=== PATIENT | female | born 1955 | race Caucasian/White ===

== ENCOUNTER 2017-08-05 14:42 | Inpatient (IN) | payer OTHER ==
[2017-08-05] MEDS: SOD CHLORIDE 0.9% 1,120 ML IV (15:13)
[2017-08-05 16:02] LABS: ADD UMIC YES; UR ASCORBIC ACID 20 mg/dL (NEGATIVE); UR BILIRUBIN (Dip) NEGATIVE (NEGATIVE); UR BLOOD (Dip) 1+ mg/dL (NEGATIVE); UR CLARITY TURBID (CLEAR); UR COLOR GREEN (YELLOW); UR GLUCOSE (Dip) NEGATIVE (NEGATIVE); UR KETONES (Dip) NEGATIVE (NEGATIVE); UR LEUKOCYTE ESTERASE (Dip) 2+ Leu/ul (NEGATIVE); UR NITRITE (Dip) NEGATIVE (NEGATIVE); UR SPECIFIC GRAVITY (Dip) 1.012 (1.003-1.030); UR TOTAL PROTEIN (Dip) 2+ mg/dl (NEGATIVE); UR UROBILINOGEN (Dip) NEGATIVE (NEGATIVE)
[2017-08-05 16:05] LABS: UR BACTERIA MODERATE /HPF (NONE SEEN); UR MUCUS FEW /HPF (NONE SEEN); UR NONSQUAMOUS EPITHELIAL CELL 3 /HPF (NONE SEEN)
[2017-08-05 16:07] LABS: ABNORMAL IP MESSAGE 1; HEMATOCRIT 19.8 % (37.0-47.0); MEAN CORPUSCULAR HEMOGLOBIN 27.4 pg (29.0-33.0); MEAN CORPUSCULAR HGB CONC 29.8 g/dl (32.0-37.0); MEAN CORPUSCULAR VOLUME 92.1 fl (82.0-101.0); MEAN PLATELET VOLUME 8.7 fl (7.4-10.4); PLATELET COUNT 150 10^3/UL (140-415); RED BLOOD COUNT 2.15 10^6/ul (4.20-5.40); RED CELL DISTRIBUTION WIDTH 14.9 % (11.5-14.5)
[2017-08-05 16:07] LABS: WHITE BLOOD COUNT 4.9 10^3/ul (4.8-10.8)
[2017-08-05 16:08] LABS: UR RBC > 182 /HPF (0-5); UR WBC > 182 /HPF (0-5)
[2017-08-05 16:14] LABS: ADD MAN DIFF? YES; HEMOGLOBIN 5.9 g/dl (12.0-16.0); POSITIVE DIFF @See below
[2017-08-05 16:15] LABS: PATH REVIEW? YES
[2017-08-05 16:20] LABS: INR 1.58; PROTIME 19.2 Sec (11.9-14.9); PT RATIO 1.5
[2017-08-05 16:21] LABS: PARTIAL THROMBOPLASTIN TIME 48.5 Sec (25.0-35.0)
[2017-08-05 16:22] LABS: ALANINE AMINOTRANSFERASE 42 IU/L (13-69); ALBUMIN 2.2 g/dl (3.3-4.9); ALBUMIN/GLOBULIN RATIO 0.66; ALKALINE PHOSPHATASE 184 IU/L (42-121); ANION GAP 18 (8-16); ASPARTATE AMINO TRANSFERASE 94 IU/L (15-46); BLOOD UREA NITROGEN 41 mg/dl (7-20); CALCIUM 7.4 mg/dl (8.4-10.2); CARBON DIOXIDE 17 mmol/L (21-31); CHLORIDE 114 mmol/L (97-110); CREATININE 0.75 mg/dl (0.44-1.00); GLUCOSE 126 mg/dl (70-220); POTASSIUM 4.4 mmol/L (3.5-5.1); SODIUM 145 mmol/L (135-144); TOTAL PROTEIN 5.5 g/dl (6.1-8.1)
[2017-08-05 16:22] LABS: LACTIC ACID 8.4 mmol/L (0.5-2.0)
[2017-08-05] MEDS: MEROPENEM 500MG/50 ML (PMX) 50 ML IVPB (16:25)
[2017-08-05] MEDS: NORepinephrine 8MG/250 ML (PMX 250 ML IV (16:32)
[2017-08-05 16:34] LABS: TROPONIN-I < 0.012 ng/ml (0.00-0.12)
[2017-08-05 16:38] LABS: ANISOCYTOSIS 2+ (0-0); BAND NEUTROPHILS #M 1.5 10^3/ul (0.0-0.6); BAND NEUTROPHILS % (M) 32 % (0-4); HYPOCHROMASIA 1+ (0-0); LYMPHOCYTES #M 0.5 10^3/ul (0.8-2.9); LYMPHOCYTES % (M) 12 % (15-51); MICROCYTOSIS 2+ (0-0); MONOCYTES % (M) 2 % (0-11); PLATELET ESTIMATE NORMAL; SEG NEUT #M 2.7 10^3/ul (1.7-7.5); SEGMENTED NEUTROPHILS (M) % 54 % (39-77); SMUDGE%M 1 % (0-0)
[2017-08-05 17:01] LABS: AADO2 Arterial 217.7 mmHg (7.0-24.0); Allen Test ACCEPTAB; Arterial Base Excess -11.4 mmol/L (-3.0-3); Arterial Blood Gas Oxygen Sat 99.3 mmHG (95.0-98.0); Arterial COHb 0.3 % (0.0-3.0); Arterial Fraction of Oxyhgb 98.5 % (93.0-99.0); Arterial HCO3 15.8 mmol/L (22.0-26.0); Arterial MetHb 0.5 % (0.0-1.5); Arterial Total Hemglobin 6.9 g/dl (12.0-18.0); Arterial pCO2 42.1 mmhg (35-45); Blood Gas Low PEEP Setting 0 cmH2O; MODE VENT - AC; Site Left Radial
[2017-08-05] MEDS ORDERED: MEPERIDINE 25 MG INJ IV ×2 (17:30)
[2017-08-05] MEDS ORDERED: DEXTROSE 50% 50 ML SYRINGE IV ×2 (17:30)
[2017-08-05] MEDS: ACCU-CHEK XX ×7 (17:30→23:30)
[2017-08-05] MEDS ORDERED: ACETAMINOPHEN 650MG/20.3ML CUP PO (17:30)
[2017-08-05] MEDS ORDERED: ACETAMINOPHEN 650 MG SUPP PR (17:30)
[2017-08-05] MEDS: VANCOMYCIN 1 GM (PMX) 250 ML IVPB (18:37)
[2017-08-05] MEDS ORDERED: PROPOFOL 100 ML (19:29)
[2017-08-05] MEDS ORDERED: VECURONIUM 10 MG VIAL (19:29)
[2017-08-05 19:33] LABS: IMMEDIATE SPIN CROSSMATCH 1 1
[2017-08-05] MEDS ORDERED: MIDAZOLAM (DRIP) 50 mg/50 mL 50 ML IV (20:00)
[2017-08-05 20:23] LABS: LACTIC ACID 3.9 mmol/L (0.5-2.0)
[2017-08-05] MEDS: FAMOTIDINE 20 MG TAB PO (21:00)
[2017-08-05 22:35] LABS: LACTIC ACID 3.3 mmol/L (0.5-2.0)
[2017-08-05] MEDS: INSULIN HUMAN REGULAR 100 UNIT in SOD CHLORIDE 0.9% 99 ML IV (23:00)
[2017-08-05] MEDS: PROPOFOL 100 ML IV (23:01)
[2017-08-05] MEDS: VECURONIUM 10 MG VIAL IV (23:02)
[2017-08-05] MEDS: VECURONIUM 100 MG in DEXTROSE 5% 100 ML IV (23:03)
[2017-08-05] MEDS: CEFEPIME 2GM/50 ML (PMX) 50 ML IVPB (23:07)
[2017-08-05 23:38] LABS: AADO2 Arterial 201.4 mmHg (7.0-24.0); Allen Test ACCEPTAB; Arterial Base Excess -3.1 mmol/L (-3.0-3); Arterial Blood Gas Oxygen Sat 95.7 mmHG (95.0-98.0); Arterial COHb 0.2 % (0.0-3.0); Arterial Fraction of Oxyhgb 95.4 % (93.0-99.0); Arterial HCO3 20.5 mmol/L (22.0-26.0); Arterial MetHb 0.1 % (0.0-1.5); Arterial Total Hemglobin 10.1 g/dl (12.0-18.0); Arterial pCO2 25.8 mmhg (35-45); MODE VENT - AC; Site Left Radial; Temperature 32.3 C
[2017-08-05] MEDS: ARTIFICIAL TEARS 15 ML OPH BOTH EYES (23:56)
[2017-08-05] MEDS: OCULAR LUBRICANT 3.5 GM OPH OINT BOTH EYES (23:57)
[2017-08-06] MEDS: ACCU-CHEK XX ×24 (00:30→22:41)
[2017-08-06 04:19] LABS: ABNORMAL IP MESSAGE 1; HEMATOCRIT 30.1 % (37.0-47.0); INR 1.29; MEAN CORPUSCULAR HGB CONC 33.2 g/dl (32.0-37.0); MEAN CORPUSCULAR VOLUME 87.2 fl (82.0-101.0); MEAN PLATELET VOLUME 8.7 fl (7.4-10.4); PLATELET COUNT 214 10^3/UL (140-415); PROTIME 16.3 Sec (11.9-14.9); PT RATIO 1.3; RED BLOOD COUNT 3.45 10^6/ul (4.20-5.40); RED CELL DISTRIBUTION WIDTH 14.2 % (11.5-14.5)
[2017-08-06 04:19] LABS: WHITE BLOOD COUNT 18.9 10^3/ul (4.8-10.8)
[2017-08-06 04:20] LABS: PARTIAL THROMBOPLASTIN TIME 45.2 Sec (25.0-35.0)
[2017-08-06 04:24] LABS: POSITIVE DIFF @See below
[2017-08-06 04:27] LABS: ADD MAN DIFF? YES
[2017-08-06 04:30] LABS: ALANINE AMINOTRANSFERASE 43 IU/L (13-69); ALBUMIN 2.6 g/dl (3.3-4.9); ALBUMIN/GLOBULIN RATIO 0.65; ALKALINE PHOSPHATASE 183 IU/L (42-121); ANION GAP 17 (8-16); ASPARTATE AMINO TRANSFERASE 86 IU/L (15-46); BLOOD UREA NITROGEN 41 mg/dl (7-20); CALCIUM 8.1 mg/dl (8.4-10.2); CARBON DIOXIDE 22 mmol/L (21-31); CHLORIDE 113 mmol/L (97-110); CREATININE 0.62 mg/dl (0.44-1.00); GLUCOSE 90 mg/dl (70-220); MAGNESIUM 1.7 mg/dl (1.7-2.5); PHOSPHORUS 3.2 mg/dl (2.5-4.9); POTASSIUM 3.5 mmol/L (3.5-5.1); SODIUM 148 mmol/L (135-144); TOTAL PROTEIN 6.6 g/dl (6.1-8.1)
[2017-08-06 05:01] LABS: MAGNESIUM 2.2 mg/dl (1.7-2.5)
[2017-08-06 05:56] LABS: AADO2 Arterial 264.6 mmHg (7.0-24.0); Arterial Base Excess -2.9 mmol/L (-3.0-3); Arterial Blood Gas Oxygen Sat 96.4 mmHG (95.0-98.0); Arterial COHb 0.3 % (0.0-3.0); Arterial HCO3 21.1 mmol/L (22.0-26.0); Arterial MetHb 0.1 % (0.0-1.5); Arterial Total Hemglobin 11.3 g/dl (12.0-18.0); Arterial pCO2 28.1 mmhg (35-45); MODE VENT - AC; Site LB; Temperature 32.8 C
[2017-08-06] MEDS: OCULAR LUBRICANT 3.5 GM OPH OINT BOTH EYES ×5 (06:13→23:39)
[2017-08-06] MEDS: ARTIFICIAL TEARS 15 ML OPH BOTH EYES ×5 (06:13→23:39)
[2017-08-06] MEDS: CEFEPIME 2GM/50 ML (PMX) 50 ML IVPB ×3 (06:16→22:29)
[2017-08-06 07:40] LABS: LACTIC ACID 2.2 mmol/L (0.5-2.0)
[2017-08-06] MEDS: FAMOTIDINE 20 MG TAB PO (09:00)
[2017-08-06 09:49] LABS: ABNORMAL IP MESSAGE 1; HEMATOCRIT 30.4 % (37.0-47.0); HEMOGLOBIN 10.1 g/dl (12.0-16.0); MEAN CORPUSCULAR HEMOGLOBIN 28.7 pg (29.0-33.0); MEAN CORPUSCULAR HGB CONC 33.2 g/dl (32.0-37.0); MEAN CORPUSCULAR VOLUME 86.4 fl (82.0-101.0); PLATELET COUNT 193 10^3/UL (140-415); RED BLOOD COUNT 3.52 10^6/ul (4.20-5.40); RED CELL DISTRIBUTION WIDTH 14.4 % (11.5-14.5)
[2017-08-06 09:49] LABS: WHITE BLOOD COUNT 18.5 10^3/ul (4.8-10.8)
[2017-08-06 09:51] LABS: ADD MAN DIFF? YES; POSITIVE DIFF @See below
[2017-08-06 10:20] LABS: ANISOCYTOSIS 1+ (0-0); BAND NEUTROPHILS #M 10.2 10^3/ul (0.0-0.6); BAND NEUTROPHILS % (M) 54 % (0-4); GIANT THROMBO% (M) 1 % (0-0); LYMPHOCYTES #M 0.5 10^3/ul (0.8-2.9); LYMPHOCYTES % (M) 3 % (15-51); METAMYELOCYTES #M 2.6 10^3/ul (0.0-0.0); METAMYELOCYTES %M 14 % (0-0); MONOCYTE #M 0.5 10^3/ul (0.3-0.9); MONOCYTES % (M) 3 % (0-11); MYELOCYTES #M 1.3 10^3/ul (0.0-0.0); MYELOCYTES % (M) 7 % (0-0); PLATELET ESTIMATE NORMAL; POLYCHROMASIA 2+ (0-0); SEG NEUT #M 5.5 10^3/ul (1.7-7.5); SEGMENTED NEUTROPHILS (M) % 19 % (39-77); SMUDGE%M 9 % (0-0)
[2017-08-06 10:39] LABS: INR 1.38; PROTIME 17.2 Sec (11.9-14.9); PT RATIO 1.3
[2017-08-06 10:40] LABS: PARTIAL THROMBOPLASTIN TIME 48.1 Sec (25.0-35.0)
[2017-08-06 10:42] LABS: ALANINE AMINOTRANSFERASE 49 IU/L (13-69); ALBUMIN 2.6 g/dl (3.3-4.9); ALBUMIN/GLOBULIN RATIO 0.63; ALKALINE PHOSPHATASE 183 IU/L (42-121); ANION GAP 15 (8-16); ASPARTATE AMINO TRANSFERASE 84 IU/L (15-46); BILIRUBIN,INDIRECT 0.1 mg/dl (0-1.1); BILIRUBIN,TOTAL 0.1 mg/dl (0.2-1.3); BLOOD UREA NITROGEN 44 mg/dl (7-20); CALCIUM 8.1 mg/dl (8.4-10.2); CARBON DIOXIDE 23 mmol/L (21-31); CHLORIDE 113 mmol/L (97-110); CREATININE 0.62 mg/dl (0.44-1.00); GLUCOSE 80 mg/dl (70-220); MAGNESIUM 1.7 mg/dl (1.7-2.5); PHOSPHORUS 3.3 mg/dl (2.5-4.9); POTASSIUM 3.6 mmol/L (3.5-5.1); SODIUM 147 mmol/L (135-144); TOTAL PROTEIN 6.7 g/dl (6.1-8.1)
[2017-08-06] MEDS ORDERED: PROPOFOL 100 ML (11:21)
[2017-08-06] MEDS: PROPOFOL 100 ML IV ×2 (11:35→23:38)
[2017-08-06 12:10] LABS: AADO2 Arterial 184.9 mmHg (7.0-24.0); Allen Test ACCEPTAB; Arterial Base Excess -5.6 mmol/L (-3.0-3); Arterial Blood Gas Oxygen Sat 98.6 mmHG (95.0-98.0); Arterial COHb 0.2 % (0.0-3.0); Arterial Fraction of Oxyhgb 98.1 % (93.0-99.0); Arterial HCO3 19.1 mmol/L (22.0-26.0); Arterial MetHb 0.3 % (0.0-1.5); Arterial Total Hemglobin 11.6 g/dl (12.0-18.0); Arterial pCO2 29.5 mmhg (35-45); MODE VENT - AC; Site Right Radial; Temperature 33.2 C
[2017-08-06 13:37] LABS: TROPONIN-I < 0.012 ng/ml (0.00-0.12)
[2017-08-06 15:39] LABS: WHITE BLOOD COUNT 15.1 10^3/ul (4.8-10.8)
[2017-08-06 15:39] LABS: ABNORMAL IP MESSAGE 1; HEMATOCRIT 29.5 % (37.0-47.0); HEMOGLOBIN 9.8 g/dl (12.0-16.0); MEAN CORPUSCULAR HEMOGLOBIN 28.7 pg (29.0-33.0); MEAN CORPUSCULAR HGB CONC 33.2 g/dl (32.0-37.0); MEAN CORPUSCULAR VOLUME 86.3 fl (82.0-101.0); MEAN PLATELET VOLUME 8.8 fl (7.4-10.4); PLATELET COUNT 171 10^3/UL (140-415); RED BLOOD COUNT 3.42 10^6/ul (4.20-5.40); RED CELL DISTRIBUTION WIDTH 14.4 % (11.5-14.5)
[2017-08-06 15:45] LABS: POSITIVE DIFF @See below
[2017-08-06 15:54] LABS: ADD MAN DIFF? YES
[2017-08-06 16:03] LABS: ALANINE AMINOTRANSFERASE 44 IU/L (13-69); ALBUMIN 2.6 g/dl (3.3-4.9); ALBUMIN/GLOBULIN RATIO 0.66; ALKALINE PHOSPHATASE 183 IU/L (42-121); ANION GAP 18 (8-16); ASPARTATE AMINO TRANSFERASE 68 IU/L (15-46); BLOOD UREA NITROGEN 48 mg/dl (7-20); CALCIUM 7.8 mg/dl (8.4-10.2); CARBON DIOXIDE 20 mmol/L (21-31); CHLORIDE 113 mmol/L (97-110); CREATININE 0.66 mg/dl (0.44-1.00); GLUCOSE 84 mg/dl (70-220); MAGNESIUM 1.7 mg/dl (1.7-2.5); PHOSPHORUS 3.8 mg/dl (2.5-4.9); POTASSIUM 3.9 mmol/L (3.5-5.1); SODIUM 147 mmol/L (135-144); TOTAL PROTEIN 6.5 g/dl (6.1-8.1)
[2017-08-06 16:21] LABS: TROPONIN-I < 0.012 ng/ml (0.00-0.12)
[2017-08-06 16:21] LABS: INR 1.51; PROTIME 18.5 Sec (11.9-14.9); PT RATIO 1.4
[2017-08-06 16:22] LABS: PARTIAL THROMBOPLASTIN TIME 44.4 Sec (25.0-35.0)
[2017-08-06] MEDS ORDERED: PENDING SANTYL ORDER FOR WOUND CARE XX (16:30)
[2017-08-06] MEDS: SOD CHLORIDE 0.9% 1,000 ML IV ×2 (16:37→20:27)
[2017-08-06 16:38] LABS: ANISOCYTOSIS 1+ (0-0); BAND NEUTROPHILS #M 1.9 10^3/ul (0.0-0.6); BAND NEUTROPHILS % (M) 13 % (0-4); GIANT THROMBO% (M) 1 % (0-0); LYMPHOCYTES #M 0.1 10^3/ul (0.8-2.9); LYMPHOCYTES % (M) 1 % (15-51); MICROCYTOSIS 1+ (0-0); MONOCYTE #M 0.9 10^3/ul (0.3-0.9); MONOCYTES % (M) 6 % (0-11); MYELOCYTES #M 0.3 10^3/ul (0.0-0.0); MYELOCYTES % (M) 2 % (0-0); PLATELET MORPHOLOGY COMMENT @See below; POIKILOCYTOSIS 1+ (0-0); SEG NEUT #M 12.1 10^3/ul (1.7-7.5); SEGMENTED NEUTROPHILS (M) % 78 % (39-77); SMUDGE%M 4 % (0-0)
[2017-08-06] MEDS: ACETAMINOPHEN 650MG/20.3ML CUP PO (17:30)
[2017-08-06] MEDS: ACETAMINOPHEN 650 MG SUPP PR ×2 (17:46→23:38)
[2017-08-06] MEDS: VECURONIUM 100 MG in DEXTROSE 5% 100 ML IV (18:24)
[2017-08-06 19:42] LABS: AADO2 Arterial 123.3 mmHg (7.0-24.0); Allen Test ACCEPTAB; Arterial Base Excess -6.3 mmol/L (-3.0-3); Arterial Blood Gas Oxygen Sat 98.4 mmHG (95.0-98.0); Arterial COHb 0.2 % (0.0-3.0); Arterial HCO3 18.4 mmol/L (22.0-26.0); Arterial MetHb 0.2 % (0.0-1.5); Arterial Total Hemglobin 10.1 g/dl (12.0-18.0); Arterial pCO2 28.7 mmhg (35-45); MODE VENT - AC; Site Right Radial; Temperature 33.3 C
[2017-08-06] MEDS: FAMOTIDINE 20 MG INJ IV (20:31)
[2017-08-06] MEDS: NORepinephrine 8MG/250 ML (PMX 250 ML IV (22:33)
[2017-08-06 22:40] LABS: ABNORMAL IP MESSAGE 1; HEMATOCRIT 22.9 % (37.0-47.0); HEMOGLOBIN 7.8 g/dl (12.0-16.0); MEAN CORPUSCULAR HEMOGLOBIN 29.4 pg (29.0-33.0); MEAN CORPUSCULAR HGB CONC 34.1 g/dl (32.0-37.0); MEAN CORPUSCULAR VOLUME 86.4 fl (82.0-101.0); MEAN PLATELET VOLUME 8.8 fl (7.4-10.4); PLATELET COUNT 98 10^3/UL (140-415); RED BLOOD COUNT 2.65 10^6/ul (4.20-5.40); RED CELL DISTRIBUTION WIDTH 14.7 % (11.5-14.5)
[2017-08-06 22:40] LABS: WHITE BLOOD COUNT 10.5 10^3/ul (4.8-10.8)
[2017-08-06 22:59] LABS: INR 1.71; PROTIME 20.4 Sec (11.9-14.9); PT RATIO 1.6
[2017-08-06 23:00] LABS: PARTIAL THROMBOPLASTIN TIME 43.3 Sec (25.0-35.0)
[2017-08-06 23:01] LABS: ALANINE AMINOTRANSFERASE 40 IU/L (13-69); ALBUMIN 2.1 g/dl (3.3-4.9); ALKALINE PHOSPHATASE 129 IU/L (42-121); ANION GAP 16 (8-16); ASPARTATE AMINO TRANSFERASE 52 IU/L (15-46); BLOOD UREA NITROGEN 49 mg/dl (7-20); CALCIUM 7.5 mg/dl (8.4-10.2); CARBON DIOXIDE 19 mmol/L (21-31); CHLORIDE 116 mmol/L (97-110); CREATININE 0.66 mg/dl (0.44-1.00); GLUCOSE 78 mg/dl (70-220); MAGNESIUM 1.6 mg/dl (1.7-2.5); PHOSPHORUS 3.9 mg/dl (2.5-4.9); POTASSIUM 3.5 mmol/L (3.5-5.1); SODIUM 147 mmol/L (135-144); TOTAL PROTEIN 5.6 g/dl (6.1-8.1)
[2017-08-06 23:03] LABS: ADD MAN DIFF? YES; POSITIVE DIFF @See below
[2017-08-07] MEDS: MAGNESIUM SULFATE 2 GM/50 ML 50 ML IVPB (00:21)
[2017-08-07] MEDS: DEXTROSE 5% 1,000 ML IV ×2 (00:21→13:23)
[2017-08-07] MEDS: ACCU-CHEK XX ×16 (00:30→15:30)
[2017-08-07 00:57] LABS: HEMATOCRIT 25.5 % (37.0-47.0); HEMOGLOBIN 8.5 g/dl (12.0-16.0)
[2017-08-07 01:59] LABS: TROPONIN-I < 0.012 ng/ml (0.00-0.12)
[2017-08-07 03:41] LABS: ADD MAN DIFF? NO
[2017-08-07 04:01] LABS: PROTIME 18.4 Sec (11.9-14.9); PT RATIO 1.4
[2017-08-07 04:02] LABS: PARTIAL THROMBOPLASTIN TIME 40.2 Sec (25.0-35.0)
[2017-08-07 04:04] LABS: ALANINE AMINOTRANSFERASE 44 IU/L (13-69); ALBUMIN 2.2 g/dl (3.3-4.9); ALBUMIN/GLOBULIN RATIO 0.64; ALKALINE PHOSPHATASE 132 IU/L (42-121); ANION GAP 18 (8-16); ASPARTATE AMINO TRANSFERASE 56 IU/L (15-46); BLOOD UREA NITROGEN 49 mg/dl (7-20); CALCIUM 7.5 mg/dl (8.4-10.2); CARBON DIOXIDE 16 mmol/L (21-31); CHLORIDE 116 mmol/L (97-110); CREATININE 0.69 mg/dl (0.44-1.00); GLUCOSE 112 mg/dl (70-220); MAGNESIUM 2.7 mg/dl (1.7-2.5); POTASSIUM 3.4 mmol/L (3.5-5.1); SODIUM 147 mmol/L (135-144); TOTAL PROTEIN 5.6 g/dl (6.1-8.1)
[2017-08-07 04:12] LABS: WHITE BLOOD COUNT 19.2 10^3/ul (4.8-10.8)
[2017-08-07 04:12] LABS: ABNORMAL IP MESSAGE 1; HEMATOCRIT 25.2 % (37.0-47.0); HEMOGLOBIN 8.5 g/dl (12.0-16.0); LYMPHOCYTES % 5.3 % (15.0-51.0); MEAN CORPUSCULAR HGB CONC 33.7 g/dl (32.0-37.0); MEAN PLATELET VOLUME 9.3 fl (7.4-10.4); MONOCYTE # 0.3 10^3/ul (0.3-0.9); MONOCYTES % 1.7 % (0.0-11.0); NEUTROPHIL # 17.2 10^3/ul (1.6-7.5); NEUTROPHILS % 89.1 % (39.0-77.0); PLATELET COUNT 169 10^3/UL (140-415); RED BLOOD COUNT 2.93 10^6/ul (4.20-5.40); RED CELL DISTRIBUTION WIDTH 14.7 % (11.5-14.5)
[2017-08-07 04:16] LABS: POSITIVE DIFF @See below
[2017-08-07] MEDS: CEFEPIME 2GM/50 ML (PMX) 50 ML IVPB ×3 (05:45→22:21)
[2017-08-07] MEDS: ACETAMINOPHEN 650 MG SUPP PR ×2 (05:45→11:51)
[2017-08-07] MEDS: ARTIFICIAL TEARS 15 ML OPH BOTH EYES ×3 (05:45→17:15)
[2017-08-07] MEDS: OCULAR LUBRICANT 3.5 GM OPH OINT BOTH EYES ×3 (05:46→17:15)
[2017-08-07] MEDS: DEXTROSE 5% IVPB (05:47)
[2017-08-07] MEDS: VECURONIUM IVPB (05:47)
[2017-08-07 07:03] LABS: ALANINE AMINOTRANSFERASE 46 IU/L (13-69); ALBUMIN 2.2 g/dl (3.3-4.9); ALBUMIN/GLOBULIN RATIO 0.59; ALKALINE PHOSPHATASE 156 IU/L (42-121); ANION GAP 19 (8-16); ASPARTATE AMINO TRANSFERASE 75 IU/L (15-46); BLOOD UREA NITROGEN 50 mg/dl (7-20); CALCIUM 7.6 mg/dl (8.4-10.2); CARBON DIOXIDE 17 mmol/L (21-31); CHLORIDE 115 mmol/L (97-110); GLUCOSE 118 mg/dl (70-220); POTASSIUM 3.6 mmol/L (3.5-5.1); SODIUM 147 mmol/L (135-144); TOTAL PROTEIN 5.9 g/dl (6.1-8.1)
[2017-08-07] MEDS: FAMOTIDINE 20 MG INJ IV ×2 (09:20→20:55)
[2017-08-07 09:50] LABS: ABNORMAL IP MESSAGE 1; HEMOGLOBIN 8.8 g/dl (12.0-16.0); MEAN CORPUSCULAR HEMOGLOBIN 28.7 pg (29.0-33.0); MEAN CORPUSCULAR HGB CONC 33.8 g/dl (32.0-37.0); MEAN CORPUSCULAR VOLUME 84.7 fl (82.0-101.0); MEAN PLATELET VOLUME 9.8 fl (7.4-10.4); PLATELET COUNT 200 10^3/UL (140-415); RED BLOOD COUNT 3.07 10^6/ul (4.20-5.40); RED CELL DISTRIBUTION WIDTH 15.2 % (11.5-14.5)
[2017-08-07 09:50] LABS: WHITE BLOOD COUNT 23.8 10^3/ul (4.8-10.8)
[2017-08-07 09:57] LABS: POSITIVE DIFF @See below
[2017-08-07 09:58] LABS: ADD MAN DIFF? YES
[2017-08-07 10:04] LABS: AMYLASE < 30 U/L (11-123)
[2017-08-07 10:04] LABS: LIPASE < 10 U/L (23-300)
[2017-08-07 10:07] LABS: ALANINE AMINOTRANSFERASE 42 IU/L (13-69); ALBUMIN 2.3 g/dl (3.3-4.9); ALBUMIN/GLOBULIN RATIO 0.63; ALKALINE PHOSPHATASE 158 IU/L (42-121); ANION GAP 18 (8-16); ASPARTATE AMINO TRANSFERASE 67 IU/L (15-46); BLOOD UREA NITROGEN 51 mg/dl (7-20); CALCIUM 7.5 mg/dl (8.4-10.2); CARBON DIOXIDE 16 mmol/L (21-31); CHLORIDE 114 mmol/L (97-110); CREATININE 0.68 mg/dl (0.44-1.00); GLUCOSE 136 mg/dl (70-220); MAGNESIUM 2.4 mg/dl (1.7-2.5); PHOSPHORUS 4.3 mg/dl (2.5-4.9); POTASSIUM 3.8 mmol/L (3.5-5.1); SODIUM 144 mmol/L (135-144); TOTAL PROTEIN 5.9 g/dl (6.1-8.1)
[2017-08-07 10:16] LABS: PROTIME 20.3 Sec (11.9-14.9); PT RATIO 1.6
[2017-08-07 10:17] LABS: PARTIAL THROMBOPLASTIN TIME 38.9 Sec (25.0-35.0)
[2017-08-07 11:22] LABS: PATH REVIEW CH
[2017-08-07] MEDS: PROPOFOL 100 ML IV ×2 (11:30→22:24)
[2017-08-07] MEDS: SOD CHLORIDE 0.9% 1,000 ML IV (12:31)
[2017-08-07 12:35] LABS: TROPONIN-I < 0.012 ng/ml (0.00-0.12)
[2017-08-07 13:40] LABS: ANISOCYTOSIS 1+ (0-0); BAND NEUTROPHILS % (M) 17 % (0-4); BURR CELLS 1+ (0-0); LYMPHOCYTES #M 0.4 10^3/ul (0.8-2.9); LYMPHOCYTES % (M) 2 % (15-51); MICROCYTOSIS 1+ (0-0); PLATELET ESTIMATE NORMAL; POIKILOCYTOSIS 1+ (0-0); POLYCHROMASIA 1+ (0-0); REACTIVE LYMPHOCYTES #M 0.2 10^3/ul (0.0-0.0); REACTIVE LYMPHOCYTES% (M) 1 % (0-0); SEGMENTED NEUTROPHILS (M) % 80 % (39-77); SMUDGE%M 11 % (0-0)
[2017-08-07 15:30] LABS: ADD MAN DIFF? NO
[2017-08-07 15:37] LABS: WHITE BLOOD COUNT 19.1 10^3/ul (4.8-10.8)
[2017-08-07 15:37] LABS: ABNORMAL IP MESSAGE 1; HEMATOCRIT 25.7 % (37.0-47.0); HEMOGLOBIN 8.7 g/dl (12.0-16.0); MEAN CORPUSCULAR HEMOGLOBIN 29.3 pg (29.0-33.0); MEAN CORPUSCULAR HGB CONC 33.9 g/dl (32.0-37.0); MEAN CORPUSCULAR VOLUME 86.5 fl (82.0-101.0); MEAN PLATELET VOLUME 9.6 fl (7.4-10.4); PLATELET COUNT 158 10^3/UL (140-415); RED BLOOD COUNT 2.97 10^6/ul (4.20-5.40); RED CELL DISTRIBUTION WIDTH 15.3 % (11.5-14.5)
[2017-08-07 15:42] LABS: POSITIVE DIFF @See below
[2017-08-07 15:51] LABS: INR 1.58; PROTIME 19.2 Sec (11.9-14.9); PT RATIO 1.5
[2017-08-07 16:18] LABS: ALANINE AMINOTRANSFERASE 44 IU/L (13-69); ALBUMIN 2.3 g/dl (3.3-4.9); ALBUMIN/GLOBULIN RATIO 0.67; ALKALINE PHOSPHATASE 143 IU/L (42-121); ANION GAP 17 (8-16); ASPARTATE AMINO TRANSFERASE 72 IU/L (15-46); BILIRUBIN,INDIRECT 0.3 mg/dl (0-1.1); BILIRUBIN,TOTAL 0.3 mg/dl (0.2-1.3); BLOOD UREA NITROGEN 50 mg/dl (7-20); CALCIUM 7.2 mg/dl (8.4-10.2); CARBON DIOXIDE 14 mmol/L (21-31); CHLORIDE 114 mmol/L (97-110); CREATININE 0.68 mg/dl (0.44-1.00); GLUCOSE 198 mg/dl (70-220); MAGNESIUM 2.3 mg/dl (1.7-2.5); PHOSPHORUS 4.2 mg/dl (2.5-4.9); POTASSIUM 3.5 mmol/L (3.5-5.1); SODIUM 141 mmol/L (135-144); TOTAL PROTEIN 5.7 g/dl (6.1-8.1)
[2017-08-07 16:22] LABS: LIPASE < 10 U/L (23-300)
[2017-08-07 16:22] LABS: AMYLASE < 30 U/L (11-123)
[2017-08-07 16:38] LABS: ANISOCYTOSIS 1+ (0-0); BAND NEUTROPHILS % (M) 16 % (0-4); LYMPHOCYTES #M 0.1 10^3/ul (0.8-2.9); LYMPHOCYTES % (M) 1 % (15-51); MICROCYTOSIS 1+ (0-0); MONOCYTE #M 0.3 10^3/ul (0.3-0.9); MONOCYTES % (M) 2 % (0-11); PLATELET ESTIMATE NORMAL; POIKILOCYTOSIS 1+ (0-0); REACTIVE LYMPHOCYTES #M 0.1 10^3/ul (0.0-0.0); REACTIVE LYMPHOCYTES% (M) 1 % (0-0); SEG NEUT #M 15.9 10^3/ul (1.7-7.5); SEGMENTED NEUTROPHILS (M) % 80 % (39-77)
[2017-08-07] MEDS: INSULIN ASPART [NOVOLOG] 3 ML PEN SC ×2 (16:47→21:00)
[2017-08-07 21:53] LABS: ADD MAN DIFF? NO
[2017-08-07 21:54] LABS: WHITE BLOOD COUNT 18.3 10^3/ul (4.8-10.8)
[2017-08-07 21:54] LABS: ABNORMAL IP MESSAGE 1; HEMATOCRIT 24.8 % (37.0-47.0); HEMOGLOBIN 8.4 g/dl (12.0-16.0); MEAN CORPUSCULAR HEMOGLOBIN 29.1 pg (29.0-33.0); MEAN CORPUSCULAR HGB CONC 33.9 g/dl (32.0-37.0); MEAN CORPUSCULAR VOLUME 85.8 fl (82.0-101.0); MEAN PLATELET VOLUME 9.1 fl (7.4-10.4); PLATELET COUNT 144 10^3/UL (140-415); RED BLOOD COUNT 2.89 10^6/ul (4.20-5.40); RED CELL DISTRIBUTION WIDTH 15.4 % (11.5-14.5)
[2017-08-07 21:55] LABS: POSITIVE DIFF @See below
[2017-08-07 22:18] LABS: AMYLASE 34 U/L (11-123)
[2017-08-07 22:18] LABS: LIPASE 10 U/L (23-300)
[2017-08-07 22:20] LABS: ALANINE AMINOTRANSFERASE 36 IU/L (13-69); ALBUMIN 2.2 g/dl (3.3-4.9); ALBUMIN/GLOBULIN RATIO 0.57; ALKALINE PHOSPHATASE 130 IU/L (42-121); ANION GAP 14 (8-16); ASPARTATE AMINO TRANSFERASE 70 IU/L (15-46); BLOOD UREA NITROGEN 51 mg/dl (7-20); CALCIUM 7.3 mg/dl (8.4-10.2); CARBON DIOXIDE 17 mmol/L (21-31); CHLORIDE 110 mmol/L (97-110); CREATININE 0.77 mg/dl (0.44-1.00); GLUCOSE 222 mg/dl (70-220); MAGNESIUM 2.2 mg/dl (1.7-2.5); PHOSPHORUS 4.3 mg/dl (2.5-4.9); POTASSIUM 3.3 mmol/L (3.5-5.1); SODIUM 138 mmol/L (135-144)
[2017-08-07 22:29] LABS: INR 1.39; PARTIAL THROMBOPLASTIN TIME 39.4 Sec (25.0-35.0); PROTIME 17.3 Sec (11.9-14.9); PT RATIO 1.4
[2017-08-08] MEDS: LEVETIRACETAM 1500 MG (PMX) 100 ML IVPB ×3 (00:31→21:18)
[2017-08-08] MEDS: OCULAR LUBRICANT 3.5 GM OPH OINT BOTH EYES ×4 (00:33→17:29)
[2017-08-08] MEDS: ARTIFICIAL TEARS 15 ML OPH BOTH EYES ×4 (00:33→17:29)
[2017-08-08 00:40] LABS: BAND NEUTROPHILS #M 1.2 10^3/ul (0.0-0.6); BAND NEUTROPHILS % (M) 7 % (0-4); EOSINOPHILS % (M) 1 % (0-7); LYMPHOCYTES % (M) 6 % (15-51); MONOCYTE #M 0.3 10^3/ul (0.3-0.9); MONOCYTES % (M) 2 % (0-11); PLATELET ESTIMATE NORMAL; SEG NEUT #M 15.6 10^3/ul (1.7-7.5); SEGMENTED NEUTROPHILS (M) % 84 % (39-77); SMUDGE%M 12 % (0-0)
[2017-08-08 00:54] LABS: AMYLASE 34 U/L (11-123)
[2017-08-08 00:54] LABS: LIPASE 10 U/L (23-300)
[2017-08-08 01:14] LABS: TROPONIN-I < 0.012 ng/ml (0.00-0.12)
[2017-08-08] MEDS: INSULIN ASPART [NOVOLOG] 3 ML PEN SC ×6 (01:23→21:00)
[2017-08-08] MEDS: POTASSIUM CHLORIDE 50 ML IVPB ×2 (01:49→03:59)
[2017-08-08] MEDS: DEXTROSE 5% 1,000 ML IV ×2 (01:54→15:29)
[2017-08-08] MEDS ORDERED: GLUCOSE GEL 15 GRAM TUBE PO ×2 (02:00)
[2017-08-08] MEDS ORDERED: GLUCOSE GEL 15 GRAM TUBE BUCCAL (02:00)
[2017-08-08] MEDS ORDERED: GLUCAGON 1 MG INJ IM (02:00)
[2017-08-08] MEDS ORDERED: DEXTROSE 50% 50 ML SYRINGE IV ×2 (02:00)
[2017-08-08 03:37] LABS: ADD MAN DIFF? NO
[2017-08-08 04:00] LABS: ALANINE AMINOTRANSFERASE 38 IU/L (13-69); ALBUMIN 1.9 g/dl (3.3-4.9); ALBUMIN/GLOBULIN RATIO 0.61; ALKALINE PHOSPHATASE 124 IU/L (42-121); ANION GAP 16 (8-16); ASPARTATE AMINO TRANSFERASE 74 IU/L (15-46); BLOOD UREA NITROGEN 50 mg/dl (7-20); CALCIUM 7.2 mg/dl (8.4-10.2); CARBON DIOXIDE 16 mmol/L (21-31); CHLORIDE 112 mmol/L (97-110); CREATININE 0.72 mg/dl (0.44-1.00); GLUCOSE 176 mg/dl (70-220); MAGNESIUM 2.2 mg/dl (1.7-2.5); PHOSPHORUS 3.8 mg/dl (2.5-4.9); POTASSIUM 3.5 mmol/L (3.5-5.1); SODIUM 140 mmol/L (135-144)
[2017-08-08 04:03] LABS: INR 1.34; PROTIME 16.8 Sec (11.9-14.9); PT RATIO 1.3
[2017-08-08 04:04] LABS: PARTIAL THROMBOPLASTIN TIME 39.2 Sec (25.0-35.0)
[2017-08-08 04:06] LABS: ABNORMAL IP MESSAGE 1; BASOPHILS % 0.2 % (0.0-2.0); HEMATOCRIT 22.4 % (37.0-47.0); HEMOGLOBIN 7.5 g/dl (12.0-16.0); LYMPHOCYTES # 1.1 10^3/ul (0.8-2.9); LYMPHOCYTES % 7.5 % (15.0-51.0); MEAN CORPUSCULAR HEMOGLOBIN 29.1 pg (29.0-33.0); MEAN CORPUSCULAR HGB CONC 33.5 g/dl (32.0-37.0); MEAN CORPUSCULAR VOLUME 86.8 fl (82.0-101.0); MEAN PLATELET VOLUME 9.4 fl (7.4-10.4); MONOCYTE # 0.3 10^3/ul (0.3-0.9); MONOCYTES % 1.7 % (0.0-11.0); NEUTROPHIL # 13.6 10^3/ul (1.6-7.5); NEUTROPHILS % 89.6 % (39.0-77.0); NUCLEATED RED BLOOD CELLS% 0.1 /100WBC (0.0-0.0); PLATELET COUNT 136 10^3/UL (140-415); RED BLOOD COUNT 2.58 10^6/ul (4.20-5.40); RED CELL DISTRIBUTION WIDTH 15.5 % (11.5-14.5)
[2017-08-08 04:06] LABS: WHITE BLOOD COUNT 15.1 10^3/ul (4.8-10.8)
[2017-08-08 04:08] LABS: POSITIVE DIFF @See below
[2017-08-08 04:12] LABS: TROPONIN-I < 0.012 ng/ml (0.00-0.12)
[2017-08-08] MEDS ORDERED: LORAZEPAM 2 MG INJ (05:26)
[2017-08-08] MEDS: LORAZEPAM 2 MG INJ IV (05:27)
[2017-08-08] MEDS: CEFEPIME 2GM/50 ML (PMX) 50 ML IVPB ×2 (06:22→21:18)
[2017-08-08] MEDS ORDERED: INSULIN ASPART [NOVOLOG] 3 ML PEN SC (07:35)
[2017-08-08] MEDS: FAMOTIDINE 20 MG INJ IV (09:55)
[2017-08-08] MEDS: PROPOFOL 100 ML IV ×2 (09:55→23:30)
[2017-08-08 10:28] LABS: HEMOGLOBIN A1C 5.2 % (0-5.9)
[2017-08-08] MEDS: MULTIVITAMINS THERAPEUTIC TAB PO (13:00)
[2017-08-08] MEDS: MULTIVITAMINS 30 ML CUP NGT (13:33)
[2017-08-08] MEDS: THIAMINE 100 MG TAB PO ×2 (13:34→21:18)
[2017-08-08 17:32] LABS: ABNORMAL IP MESSAGE 1; HEMATOCRIT 19.6 % (37.0-47.0); MEAN CORPUSCULAR HEMOGLOBIN 28.6 pg (29.0-33.0); MEAN CORPUSCULAR HGB CONC 33.2 g/dl (32.0-37.0); MEAN CORPUSCULAR VOLUME 86.3 fl (82.0-101.0); MEAN PLATELET VOLUME 9.5 fl (7.4-10.4); PLATELET COUNT 88 10^3/UL (140-415); RED BLOOD COUNT 2.27 10^6/ul (4.20-5.40); RED CELL DISTRIBUTION WIDTH 15.6 % (11.5-14.5)
[2017-08-08 17:52] LABS: ANION GAP 10 (8-16); BLOOD UREA NITROGEN 46 mg/dl (7-20); CALCIUM 7.1 mg/dl (8.4-10.2); CARBON DIOXIDE 17 mmol/L (21-31); CHLORIDE 112 mmol/L (97-110); CREATININE 0.66 mg/dl (0.44-1.00); GLUCOSE 137 mg/dl (70-220); MAGNESIUM 2.2 mg/dl (1.7-2.5); PHOSPHORUS 3.1 mg/dl (2.5-4.9); POTASSIUM 3.6 mmol/L (3.5-5.1); SODIUM 135 mmol/L (135-144)
[2017-08-08 18:00] LABS: ADD MAN DIFF? YES; HEMOGLOBIN 6.5 g/dl (12.0-16.0); PATH REVIEW? YES; POSITIVE DIFF @See below
[2017-08-08 20:01] LABS: ANISOCYTOSIS 2+ (0-0); BAND NEUTROPHILS #M 0.3 10^3/ul (0.0-0.6); BAND NEUTROPHILS % (M) 4 % (0-4); ERYTHROBLAST% (NRBC) (M) 1 % (0-0); LYMPHOCYTES #M 0.9 10^3/ul (0.8-2.9); LYMPHOCYTES % (M) 11 % (15-51); MICROCYTOSIS 1+ (0-0); MONOCYTE #M 0.1 10^3/ul (0.3-0.9); MONOCYTES % (M) 2 % (0-11); PLATELET ESTIMATE DECREASED; PLATELET MORPHOLOGY COMMENT @See below; SEG NEUT #M 7.5 10^3/ul (1.7-7.5); SEGMENTED NEUTROPHILS (M) % 83 % (39-77); SMUDGE%M 1 % (0-0)
[2017-08-08 20:48] LABS: IMMEDIATE SPIN CROSSMATCH 1 1
[2017-08-08] MEDS: FAMOTIDINE 20 MG TAB NGT (21:18)
[2017-08-09] MEDS: INSULIN ASPART [NOVOLOG] 3 ML PEN SC ×6 (01:00→20:52)
[2017-08-09] MEDS ORDERED: ACCUCHECK AT 2AM (Patients on SS coverage) XX (02:00)
[2017-08-09] MEDS: DEXTROSE 5% 1,000 ML IV (02:30)
[2017-08-09] MEDS: OCULAR LUBRICANT 3.5 GM OPH OINT BOTH EYES ×5 (05:34→23:33)
[2017-08-09] MEDS: ARTIFICIAL TEARS 15 ML OPH BOTH EYES ×5 (05:35→23:33)
[2017-08-09 06:25] LABS: ABNORMAL IP MESSAGE 1; HEMATOCRIT 25.1 % (37.0-47.0); MEAN CORPUSCULAR HEMOGLOBIN 30.3 pg (29.0-33.0); MEAN CORPUSCULAR HGB CONC 35.9 g/dl (32.0-37.0); MEAN CORPUSCULAR VOLUME 84.5 fl (82.0-101.0); MEAN PLATELET VOLUME 9.9 fl (7.4-10.4); PLATELET COUNT 81 10^3/UL (140-415); RED BLOOD COUNT 2.97 10^6/ul (4.20-5.40)
[2017-08-09 06:25] LABS: WHITE BLOOD COUNT 8.8 10^3/ul (4.8-10.8)
[2017-08-09 06:43] LABS: ADD MAN DIFF? YES; POSITIVE DIFF @See below
[2017-08-09 06:49] LABS: ANION GAP 13 (8-16); BLOOD UREA NITROGEN 44 mg/dl (7-20); CALCIUM 7.1 mg/dl (8.4-10.2); CARBON DIOXIDE 16 mmol/L (21-31); CHLORIDE 110 mmol/L (97-110); CREATININE 0.64 mg/dl (0.44-1.00); GLUCOSE 153 mg/dl (70-220); MAGNESIUM 2.1 mg/dl (1.7-2.5); POTASSIUM 3.5 mmol/L (3.5-5.1); SODIUM 135 mmol/L (135-144)
[2017-08-09] MEDS: MULTIVITAMINS 30 ML CUP NGT (09:09)
[2017-08-09] MEDS: THIAMINE 100 MG TAB PO ×2 (09:10→20:53)
[2017-08-09] MEDS: CEFEPIME 2GM/50 ML (PMX) 50 ML IVPB ×2 (09:10→20:52)
[2017-08-09] MEDS: LEVETIRACETAM 1500 MG (PMX) 100 ML IVPB ×2 (09:10→20:53)
[2017-08-09 09:23] LABS: ANISOCYTOSIS 1+ (0-0); BAND NEUTROPHILS #M 1.4 10^3/ul (0.0-0.6); BAND NEUTROPHILS % (M) 16 % (0-4); BURR CELLS 2+ (0-0); LYMPHOCYTES #M 0.5 10^3/ul (0.8-2.9); LYMPHOCYTES % (M) 6 % (15-51); MICROCYTOSIS 1+ (0-0); MONOCYTE #M 0.1 10^3/ul (0.3-0.9); MONOCYTES % (M) 2 % (0-11); PLATELET ESTIMATE DECREASED; POIKILOCYTOSIS 1+ (0-0); POLYCHROMASIA 2+ (0-0); SEG NEUT #M 6.8 10^3/ul (1.7-7.5); SEGMENTED NEUTROPHILS (M) % 76 % (39-77); SMUDGE%M 3 % (0-0)
[2017-08-09] MEDS: PROPOFOL 100 ML IV ×2 (10:18→23:30)
[2017-08-09] MEDS: LIDOCAINE 1% (MPF) 5 ML VIAL SC (10:30)
[2017-08-09 17:53] LABS: ABNORMAL IP MESSAGE 1; HEMATOCRIT 25.3 % (37.0-47.0); HEMOGLOBIN 8.9 g/dl (12.0-16.0); MEAN CORPUSCULAR HEMOGLOBIN 29.2 pg (29.0-33.0); MEAN CORPUSCULAR HGB CONC 35.2 g/dl (32.0-37.0); MEAN PLATELET VOLUME 9.8 fl (7.4-10.4); PLATELET COUNT 69 10^3/UL (140-415); RED BLOOD COUNT 3.05 10^6/ul (4.20-5.40); RED CELL DISTRIBUTION WIDTH 14.9 % (11.5-14.5)
[2017-08-09 17:53] LABS: WHITE BLOOD COUNT 9.6 10^3/ul (4.8-10.8)
[2017-08-09 17:56] LABS: ADD MAN DIFF? YES; POSITIVE DIFF @See below
[2017-08-09 18:04] LABS: ANION GAP 12 (8-16); BLOOD UREA NITROGEN 42 mg/dl (7-20); CALCIUM 7.2 mg/dl (8.4-10.2); CARBON DIOXIDE 15 mmol/L (21-31); CHLORIDE 107 mmol/L (97-110); CREATININE 0.59 mg/dl (0.44-1.00); GLUCOSE 204 mg/dl (70-220); MAGNESIUM 1.9 mg/dl (1.7-2.5); PHOSPHORUS 2.4 mg/dl (2.5-4.9); POTASSIUM 3.4 mmol/L (3.5-5.1); SODIUM 131 mmol/L (135-144)
[2017-08-09 18:42] LABS: BAND NEUTROPHILS #M 0.5 10^3/ul (0.0-0.6); BAND NEUTROPHILS % (M) 6 % (0-4); GIANT THROMBO% (M) 1 % (0-0); LYMPHOCYTES #M 0.8 10^3/ul (0.8-2.9); LYMPHOCYTES % (M) 9 % (15-51); METAMYELOCYTES %M 1 % (0-0); MONOCYTES % (M) 1 % (0-11); MYELOCYTES % (M) 1 % (0-0); PLATELET ESTIMATE DECREASED; SEG NEUT #M 7.9 10^3/ul (1.7-7.5); SEGMENTED NEUTROPHILS (M) % 82 % (39-77); SMUDGE%M 2 % (0-0)
[2017-08-09] MEDS: INSULIN GLARGINE [LANtus] 3 ML PEN SC (20:41)
[2017-08-09] MEDS: NORepinephrine 8MG/250 ML (PMX 250 ML IV (20:49)
[2017-08-09] MEDS: FAMOTIDINE 20 MG TAB NGT (20:53)
[2017-08-10] MEDS: INSULIN ASPART [NOVOLOG] 3 ML PEN SC ×6 (01:44→20:55)
[2017-08-10 04:44] LABS: WHITE BLOOD COUNT 10.9 10^3/ul (4.8-10.8)
[2017-08-10 04:44] LABS: HEMOGLOBIN 9.4 g/dl (12.0-16.0); MEAN CORPUSCULAR HEMOGLOBIN 28.7 pg (29.0-33.0); MEAN CORPUSCULAR HGB CONC 34.8 g/dl (32.0-37.0); MEAN CORPUSCULAR VOLUME 82.6 fl (82.0-101.0); MEAN PLATELET VOLUME 10.2 fl (7.4-10.4); NUCLEATED RED BLOOD CELLS% 0.2 /100WBC (0.0-0.0); PLATELET COUNT 112 10^3/UL (140-415); RED BLOOD COUNT 3.27 10^6/ul (4.20-5.40); RED CELL DISTRIBUTION WIDTH 14.9 % (11.5-14.5)
[2017-08-10 04:57] LABS: ADD MAN DIFF? YES; POSITIVE DIFF @See below
[2017-08-10 05:13] LABS: ANION GAP 11 (8-16); BLOOD UREA NITROGEN 42 mg/dl (7-20); CALCIUM 7.4 mg/dl (8.4-10.2); CARBON DIOXIDE 16 mmol/L (21-31); CHLORIDE 113 mmol/L (97-110); CREATININE 0.56 mg/dl (0.44-1.00); GLUCOSE 166 mg/dl (70-220); PHOSPHORUS 2.2 mg/dl (2.5-4.9); POTASSIUM 3.5 mmol/L (3.5-5.1); SODIUM 136 mmol/L (135-144)
[2017-08-10] MEDS: ARTIFICIAL TEARS 15 ML OPH BOTH EYES ×3 (05:51→17:31)
[2017-08-10] MEDS: OCULAR LUBRICANT 3.5 GM OPH OINT BOTH EYES ×3 (05:51→17:31)
[2017-08-10 08:16] LABS: ANISOCYTOSIS 1+ (0-0); BAND NEUTROPHILS #M 0.5 10^3/ul (0.0-0.6); BAND NEUTROPHILS % (M) 5 % (0-4); LYMPHOCYTES #M 0.5 10^3/ul (0.8-2.9); LYMPHOCYTES % (M) 5 % (15-51); MONOCYTE #M 0.4 10^3/ul (0.3-0.9); MONOCYTES % (M) 4 % (0-11); PLATELET ESTIMATE DECREASED; REACTIVE LYMPHOCYTES #M 0.1 10^3/ul (0.0-0.0); REACTIVE LYMPHOCYTES% (M) 1 % (0-0); SEG NEUT #M 9.3 10^3/ul (1.7-7.5); SEGMENTED NEUTROPHILS (M) % 85 % (39-77); SMUDGE%M 17 % (0-0)
[2017-08-10] MEDS: LEVETIRACETAM 1500 MG (PMX) 100 ML IVPB (08:40)
[2017-08-10] MEDS: CEFEPIME 2GM/50 ML (PMX) 50 ML IVPB ×2 (08:41→20:53)
[2017-08-10] MEDS: MULTIVITAMINS 30 ML CUP NGT (08:41)
[2017-08-10] MEDS: THIAMINE 100 MG TAB PO ×2 (08:41→20:55)
[2017-08-10] MEDS: PROPOFOL 100 ML IV ×2 (09:06→20:56)
[2017-08-10] MEDS: NEUTRA-PHOS 250 MG PACKET PO (13:32)
[2017-08-10 17:32] LABS: ADD MAN DIFF? NO
[2017-08-10 17:38] LABS: WHITE BLOOD COUNT 8.5 10^3/ul (4.8-10.8)
[2017-08-10 17:38] LABS: ABNORMAL IP MESSAGE 1; BASOPHILS % 0.1 % (0.0-2.0); EOSINOPHILS % 0.1 % (0.0-7.0); HEMATOCRIT 26.2 % (37.0-47.0); HEMOGLOBIN 9.2 g/dl (12.0-16.0); LYMPHOCYTES # 0.9 10^3/ul (0.8-2.9); LYMPHOCYTES % 10.1 % (15.0-51.0); MEAN CORPUSCULAR HEMOGLOBIN 28.8 pg (29.0-33.0); MEAN CORPUSCULAR HGB CONC 35.1 g/dl (32.0-37.0); MEAN CORPUSCULAR VOLUME 82.1 fl (82.0-101.0); MEAN PLATELET VOLUME 10.4 fl (7.4-10.4); MONOCYTE # 0.2 10^3/ul (0.3-0.9); MONOCYTES % 2.7 % (0.0-11.0); NEUTROPHIL # 7.3 10^3/ul (1.6-7.5); NEUTROPHILS % 85.2 % (39.0-77.0); PLATELET COUNT 91 10^3/UL (140-415); RED BLOOD COUNT 3.19 10^6/ul (4.20-5.40); RED CELL DISTRIBUTION WIDTH 15.1 % (11.5-14.5)
[2017-08-10 17:46] LABS: POSITIVE DIFF @See below
[2017-08-10 18:02] LABS: ANION GAP 11 (8-16); BLOOD UREA NITROGEN 43 mg/dl (7-20); CALCIUM 7.3 mg/dl (8.4-10.2); CARBON DIOXIDE 17 mmol/L (21-31); CHLORIDE 113 mmol/L (97-110); CREATININE 0.58 mg/dl (0.44-1.00); GLUCOSE 153 mg/dl (70-220); PHOSPHORUS 2.2 mg/dl (2.5-4.9); POTASSIUM 3.8 mmol/L (3.5-5.1); SODIUM 137 mmol/L (135-144)
[2017-08-10] MEDS: LEVETIRACETAM 750 MG TAB PO (20:55)
[2017-08-10] MEDS: FAMOTIDINE 20 MG TAB NGT (20:55)
[2017-08-10] MEDS: INSULIN GLARGINE [LANtus] 3 ML PEN SC (20:57)
[2017-08-11] MEDS: NEUTRA-PHOS 250 MG PACKET PO ×2 (00:30→16:28)
[2017-08-11] MEDS: ARTIFICIAL TEARS 15 ML OPH BOTH EYES ×4 (00:30→17:34)
[2017-08-11] MEDS: OCULAR LUBRICANT 3.5 GM OPH OINT BOTH EYES ×4 (00:30→17:34)
[2017-08-11] MEDS: INSULIN ASPART [NOVOLOG] 3 ML PEN SC ×6 (01:00→21:01)
[2017-08-11 05:35] LABS: ADD MAN DIFF? NO
[2017-08-11 05:44] LABS: ABNORMAL IP MESSAGE 1; BASOPHILS % 0.3 % (0.0-2.0); EOSINOPHILS % 0.3 % (0.0-7.0); HEMATOCRIT 25.6 % (37.0-47.0); HEMOGLOBIN 8.9 g/dl (12.0-16.0); LYMPHOCYTES # 0.9 10^3/ul (0.8-2.9); LYMPHOCYTES % 12.1 % (15.0-51.0); MEAN CORPUSCULAR HGB CONC 34.8 g/dl (32.0-37.0); MEAN CORPUSCULAR VOLUME 83.4 fl (82.0-101.0); MEAN PLATELET VOLUME 10.6 fl (7.4-10.4); MONOCYTE # 0.2 10^3/ul (0.3-0.9); MONOCYTES % 3.1 % (0.0-11.0); NEUTROPHIL # 5.9 10^3/ul (1.6-7.5); NEUTROPHILS % 82.3 % (39.0-77.0); PLATELET COUNT 96 10^3/UL (140-415); RED BLOOD COUNT 3.07 10^6/ul (4.20-5.40); RED CELL DISTRIBUTION WIDTH 15.5 % (11.5-14.5)
[2017-08-11 05:44] LABS: WHITE BLOOD COUNT 7.2 10^3/ul (4.8-10.8)
[2017-08-11 05:52] LABS: POSITIVE DIFF @See below
[2017-08-11 07:43] LABS: ANION GAP 13 (8-16); BLOOD UREA NITROGEN 41 mg/dl (7-20); CALCIUM 7.5 mg/dl (8.4-10.2); CARBON DIOXIDE 17 mmol/L (21-31); CHLORIDE 115 mmol/L (97-110); CREATININE 0.57 mg/dl (0.44-1.00); GLUCOSE 72 mg/dl (70-220); PHOSPHORUS 2.4 mg/dl (2.5-4.9); POTASSIUM 3.9 mmol/L (3.5-5.1); SODIUM 141 mmol/L (135-144)
[2017-08-11] MEDS: CEFEPIME 2GM/50 ML (PMX) 50 ML IVPB ×2 (08:44→21:04)
[2017-08-11] MEDS: THIAMINE 100 MG TAB PO ×2 (08:44→20:56)
[2017-08-11] MEDS: LEVETIRACETAM 750 MG TAB PO ×2 (08:45→21:04)
[2017-08-11] MEDS: MULTIVITAMINS 30 ML CUP NGT (08:45)
[2017-08-11] MEDS: NORepinephrine 8MG/250 ML (PMX 250 ML IV (08:57)
[2017-08-11] MEDS: LORAZEPAM 2 MG INJ IV (11:29)
[2017-08-11] MEDS: PROPOFOL 100 ML IV (11:30)
[2017-08-11] MEDS: POTASSIUM PHOSPHATE 20 MEQ in DEXTROSE 5% 250 ML IV (16:28)
[2017-08-11] MEDS: FAMOTIDINE 20 MG TAB NGT (20:56)
[2017-08-11] MEDS: INSULIN GLARGINE [LANtus] 3 ML PEN SC (20:59)
[2017-08-11 21:01] LABS: WHITE BLOOD COUNT 5.9 10^3/ul (4.8-10.8)
[2017-08-11 21:01] LABS: ABNORMAL IP MESSAGE 1; HEMATOCRIT 22.9 % (37.0-47.0); HEMOGLOBIN 7.8 g/dl (12.0-16.0); MEAN CORPUSCULAR HEMOGLOBIN 28.6 pg (29.0-33.0); MEAN CORPUSCULAR HGB CONC 34.1 g/dl (32.0-37.0); MEAN CORPUSCULAR VOLUME 83.9 fl (82.0-101.0); MEAN PLATELET VOLUME 10.1 fl (7.4-10.4); PLATELET COUNT 78 10^3/UL (140-415); RED BLOOD COUNT 2.73 10^6/ul (4.20-5.40); RED CELL DISTRIBUTION WIDTH 15.9 % (11.5-14.5)
[2017-08-11 21:14] LABS: ADD MAN DIFF? YES; POSITIVE DIFF @See below
[2017-08-11 21:34] LABS: ANION GAP 13 (8-16); BLOOD UREA NITROGEN 42 mg/dl (7-20); CALCIUM 7.2 mg/dl (8.4-10.2); CARBON DIOXIDE 18 mmol/L (21-31); CHLORIDE 113 mmol/L (97-110); CREATININE 0.58 mg/dl (0.44-1.00); GLUCOSE 154 mg/dl (70-220); MAGNESIUM 1.9 mg/dl (1.7-2.5); PHOSPHORUS 4.5 mg/dl (2.5-4.9); POTASSIUM 4.9 mmol/L (3.5-5.1); SODIUM 139 mmol/L (135-144)
[2017-08-11 21:48] LABS: BAND NEUTROPHILS #M 0.2 10^3/ul (0.0-0.6); BAND NEUTROPHILS % (M) 5 % (0-4); BASOPHILS % (M) 1 % (0-2); GIANT THROMBO% (M) 11 % (0-0); LYMPHOCYTES #M 0.7 10^3/ul (0.8-2.9); LYMPHOCYTES % (M) 12 % (15-51); PLATELET ESTIMATE NORMAL; SEG NEUT #M 4.8 10^3/ul (1.7-7.5); SEGMENTED NEUTROPHILS (M) % 82 % (39-77); SMUDGE%M 23 % (0-0)
[2017-08-12] MEDS: OCULAR LUBRICANT 3.5 GM OPH OINT BOTH EYES ×5 (00:14→23:26)
[2017-08-12] MEDS: ARTIFICIAL TEARS 15 ML OPH BOTH EYES ×5 (00:14→23:26)
[2017-08-12] MEDS: INSULIN ASPART [NOVOLOG] 3 ML PEN SC ×6 (00:17→21:00)
[2017-08-12] MEDS: LORAZEPAM 2 MG INJ IV ×2 (04:23→23:25)
[2017-08-12 05:06] LABS: ADD MAN DIFF? NO
[2017-08-12 05:41] LABS: WHITE BLOOD COUNT 7.1 10^3/ul (4.8-10.8)
[2017-08-12 05:41] LABS: BASOPHILS % 0.1 % (0.0-2.0); EOSINOPHILS # 0.1 10^3/ul (0.0-0.5); EOSINOPHILS % 0.8 % (0.0-7.0); HEMATOCRIT 24.9 % (37.0-47.0); HEMOGLOBIN 8.6 g/dl (12.0-16.0); LYMPHOCYTES # 0.9 10^3/ul (0.8-2.9); MEAN CORPUSCULAR HEMOGLOBIN 29.2 pg (29.0-33.0); MEAN CORPUSCULAR HGB CONC 34.5 g/dl (32.0-37.0); MEAN CORPUSCULAR VOLUME 84.4 fl (82.0-101.0); MEAN PLATELET VOLUME 11.2 fl (7.4-10.4); MONOCYTE # 0.2 10^3/ul (0.3-0.9); MONOCYTES % 2.7 % (0.0-11.0); NEUTROPHIL # 5.9 10^3/ul (1.6-7.5); RED BLOOD COUNT 2.95 10^6/ul (4.20-5.40); RED CELL DISTRIBUTION WIDTH 15.9 % (11.5-14.5)
[2017-08-12 05:43] LABS: ANION GAP 12 (8-16); BLOOD UREA NITROGEN 41 mg/dl (7-20); CALCIUM 7.5 mg/dl (8.4-10.2); CARBON DIOXIDE 19 mmol/L (21-31); CHLORIDE 116 mmol/L (97-110); CREATININE 0.59 mg/dl (0.44-1.00); GLUCOSE 74 mg/dl (70-220); PHOSPHORUS 3.9 mg/dl (2.5-4.9); PLATELET COUNT 101 10^3/UL (140-415); POSITIVE DIFF @See below; POTASSIUM 4.6 mmol/L (3.5-5.1); SODIUM 142 mmol/L (135-144)
[2017-08-12] MEDS: THIAMINE 100 MG TAB PO ×2 (09:35→21:08)
[2017-08-12] MEDS: LEVETIRACETAM 750 MG TAB PO ×2 (09:35→21:08)
[2017-08-12] MEDS: MULTIVITAMINS 30 ML CUP NGT (09:36)
[2017-08-12] MEDS: CEFEPIME 2GM/50 ML (PMX) 50 ML IVPB ×2 (09:36→21:31)
[2017-08-12] MEDS: INSULIN GLARGINE [LANtus] 3 ML PEN SC (21:07)
[2017-08-12] MEDS: NORepinephrine 8MG/250 ML (PMX 250 ML IV (21:07)
[2017-08-12] MEDS: FAMOTIDINE 20 MG TAB NGT (21:08)
[2017-08-13] MEDS: INSULIN ASPART [NOVOLOG] 3 ML PEN SC ×4 (01:00→13:00)
[2017-08-13 05:16] LABS: ADD MAN DIFF? NO
[2017-08-13 05:21] LABS: ABNORMAL IP MESSAGE 1; BASOPHILS % 0.3 % (0.0-2.0); EOSINOPHILS % 0.7 % (0.0-7.0); HEMATOCRIT 24.1 % (37.0-47.0); LYMPHOCYTES % 16.9 % (15.0-51.0); MEAN CORPUSCULAR HEMOGLOBIN 28.5 pg (29.0-33.0); MEAN CORPUSCULAR HGB CONC 33.2 g/dl (32.0-37.0); MEAN CORPUSCULAR VOLUME 85.8 fl (82.0-101.0); MEAN PLATELET VOLUME 10.1 fl (7.4-10.4); MONOCYTE # 0.1 10^3/ul (0.3-0.9); MONOCYTES % 2.2 % (0.0-11.0); NEUTROPHIL # 4.7 10^3/ul (1.6-7.5); NEUTROPHILS % 78.6 % (39.0-77.0); PLATELET COUNT 99 10^3/UL (140-415); RED BLOOD COUNT 2.81 10^6/ul (4.20-5.40); RED CELL DISTRIBUTION WIDTH 15.9 % (11.5-14.5)
[2017-08-13 05:28] LABS: POSITIVE DIFF @See below
[2017-08-13] MEDS: ARTIFICIAL TEARS 15 ML OPH BOTH EYES ×3 (06:00→18:00)
[2017-08-13] MEDS: OCULAR LUBRICANT 3.5 GM OPH OINT BOTH EYES ×3 (06:00→18:00)
[2017-08-13 06:04] LABS: ANION GAP 12 (8-16); BLOOD UREA NITROGEN 45 mg/dl (7-20); CALCIUM 7.8 mg/dl (8.4-10.2); CARBON DIOXIDE 20 mmol/L (21-31); CHLORIDE 116 mmol/L (97-110); CREATININE 0.58 mg/dl (0.44-1.00); GLUCOSE 144 mg/dl (70-220); PHOSPHORUS 3.3 mg/dl (2.5-4.9); POTASSIUM 4.4 mmol/L (3.5-5.1); SODIUM 144 mmol/L (135-144)
[2017-08-13] MEDS: THIAMINE 100 MG TAB PO (08:27)
[2017-08-13] MEDS: CEFEPIME 2GM/50 ML (PMX) 50 ML IVPB (08:28)
[2017-08-13] MEDS: MULTIVITAMINS 30 ML CUP NGT (08:28)
[2017-08-13] MEDS: LEVETIRACETAM 750 MG TAB PO (08:28)
[2017-08-13 09:21] LABS: ANISOCYTOSIS 2+ (0-0); BAND NEUTROPHILS #M 1.2 10^3/ul (0.0-0.6); BAND NEUTROPHILS % (M) 21 % (0-4); EOSINOPHILS % (M) 1 % (0-7); LYMPHOCYTES #M 0.5 10^3/ul (0.8-2.9); LYMPHOCYTES % (M) 9 % (15-51); MICROCYTOSIS 1+ (0-0); MONOCYTE #M 0.3 10^3/ul (0.3-0.9); MONOCYTES % (M) 5 % (0-11); PLATELET ESTIMATE DECREASED; POIKILOCYTOSIS 3+ (0-0); POLYCHROMASIA 2+ (0-0); REACTIVE LYMPHOCYTES% (M) 1 % (0-0); SEG NEUT #M 3.9 10^3/ul (1.7-7.5); SEGMENTED NEUTROPHILS (M) % 63 % (39-77); SMUDGE%M 13 % (0-0)
[2017-08-13] MEDS: LORAZEPAM 2 MG INJ IV (10:19)
[2017-08-14] MEDS: ARTIFICIAL TEARS 15 ML OPH BOTH EYES ×2 (01:21→06:26)
[2017-08-14] MEDS: OCULAR LUBRICANT 3.5 GM OPH OINT BOTH EYES ×2 (01:21→06:26)
[2017-08-14] MEDS: morphine 2 MG INJ IV ×2 (09:43→10:54)
== END 2017-08-14 11:12 | disposition expired | DRG 870 ==
LOC: ICU 20:30 → E/R 14:42
PROC: 5A1955Z Respiratory Ventilation, Greater than 96 Consecutive Hours (ICD-10-PCS; principal; 2017-08-05)
PROC: 05HM33Z Insertion of Infusion Device into Right Internal Jugular Vein, Percutaneous Approach (ICD-10-PCS; 2017-08-05)
PROC: 30233N1 Transfusion of Nonautologous Red Blood Cells into Peripheral Vein, Percutaneous Approach (ICD-10-PCS; 2017-08-05)
DX: A41.9 Sepsis, unspecified organism (principal); I46.9 Cardiac arrest, cause unspecified; J96.00 Acute respiratory failure, unspecified whether with hypoxia or hypercapnia; R65.21 Severe sepsis with septic shock; G93.1 Anoxic brain damage, not elsewhere classified; J18.9 Pneumonia, unspecified organism; E46 Unspecified protein-calorie malnutrition; D69.6 Thrombocytopenia, unspecified; E87.2 Acidosis; N30.00 Acute cystitis without hematuria; Z68.1 Body mass index [BMI] 19.9 or less, adult; D64.9 Anemia, unspecified; F32.9 Major depressive disorder, single episode, unspecified; B96.20 Unspecified Escherichia coli [E. coli] as the cause of diseases classified elsewhere; B96.5 Pseudomonas (aeruginosa) (mallei) (pseudomallei) as the cause of diseases classified elsewhere; T73.0XXA Starvation, initial encounter; X58.XXXA Exposure to other specified factors, initial encounter; Z66 Do not resuscitate
CPT/HCPCS: 36415; 36430; 36600; 70450; 71045; 76937; 80048; 80053; 81001; 82150; 82803; 82962; 83036; 83605; 83690; 83735; 84100; 84443; 84484; 85014; 85018; 85025; 85384; 85610; 85730; 86850; 86900; 86901; 86920; 87040; 87081; 87086; 93005; 93306; 94002; 94003; 94770; 95819; 96365; 96366; 96367; 96368; 96375; 99291-25